=== PATIENT | female | born 1940 | race Caucasian/White ===

== ENCOUNTER 2017-09-08 18:28 | Inpatient (IN) | payer MEDICARE, BC ==
[~2017-09-08] VITALS: Ht 157.5 cm; Wt 86.4 kg
[~2017-09-08 18:28] MED LIST: CYCLOBENZAPRINE10 MG PO; IBUPROFEN600 MG PO; MOBIC7.5 MG PO; NORVASC5 MG PO; PERCOCET 5-3251 TAB PO; PRAVACHOL40 MG PO; ZESTRIL40 MG PO; ZOFRAN ODT4 MG/UDTAB PO
[2017-09-08 20:00] VITALS: BP 153/73
[2017-09-08 21:10] LABS: BASOPHILS 0.1 % (0-2); EOSINOPHILS 0.1 % (0-7); HEMATOCRIT 40.2 % (36.0-48.0); HEMOGLOBIN 13.1 g/dL (12-16); IMMATURE GRANULOCYTES 0.2 % (0-5); LYMPHOCYTES 7.2 % (15-50); MCH 29.9 pg (26.0-34.0); MCHC 32.6 g/dL (31.0-37.0); MCV 91.8 fL (80.0-100.0); MEAN PLATELET VOLUME 9.1 fL (7.4-10.4); MONOCYTES 0.6 % (2-11); NEUTROPHILS 91.8 % (40-80); PLATELET COUNT 187 10x3/uL (130-400); RBC 4.38 10x6/uL (4.00-5.40); WBC 10.8 10x3/uL (4.8-10.8)
[2017-09-08 21:23] LABS: ANION GAP 16.1 mmol/L (8-16); CALCIUM 8.8 mg/dL (8.5-10.1); CARBON DIOXIDE 24.1 mmol/L (21.0-32.0); POTASSIUM - SERUM 4.2 mmol/L (3.5-5.1)
[2017-09-09] VITALS (13 sets, daily range): BP systolic 93–174; BP diastolic 52–89; Ht 157.5 cm; Wt 86.4 kg
[2017-09-09] MEDS ORDERED: OXYBUTYNIN CHLOR5 MG PO (02:40)
[2017-09-09] MEDS ORDERED: KEFLEX250 MG PO (02:41)
[2017-09-09] MEDS ORDERED: PROTONIX40 MG PO (02:42)
[2017-09-09] MEDS ORDERED: MACROBID100 MG PO (02:45)
[2017-09-09] MEDS ORDERED: ZANAFLEX2 M1 PO (02:48)
--- NOTE | 2017-09-09 08:49 | NUR ---
AWAKE AND ALERT. ORIENTED X3. NO C/O AT THIS TIME. LUNGS ARE CLEAR BILATERALLY, NO COUGH NOTED. SKIN IS INTACT WITHOUT REDNESS. IV TO RIGHT AC IS PATENT WITHOUT REDNESS AT INSERTION SITE. FAMILY AT BEDSIDE. DENIES NEEDS. NEURO CHECKS TO LEFT WRIST WNL.
--- NOTE | 2017-09-09 10:11 | NUR ---
RESTING QUIETLY IN BED. DENIES NEEDS. FAMILY AT BEDSIDE.
--- NOTE | 2017-09-09 10:18 | NUR ---
Patient Name: HEATH COX Admission Status: Elective Accout number: [id number] Admission Date: 09-08-2017 : 1941 Admission Diagnosis: Attending: FRENCH GRANT Current LOS: 1 Anticipated DC Date: Planned Disposition: Home Primary Insurance: MEDICARE A & B Discharge Planning Comments: CM met with patient and daughter (Stephany) to assess discharge planning needs. Patient lives independently at home with her , where she plans to return after surgery. She denies any for HH or DME at this time. Patient's daughter is RN at the hospital. CM will continue to follow and assist with discharge planning needs if needed. PCP: [facility] Paula () Stephany or Lottie (daughter) Rodent Exterminator: Bianca Angulo * Is the patient Alert and Oriented? Yes 0 * How many steps to enter\exit or inside your home? 4 0 * PCP [facility] 0 * [facility] * Preadmission Environment Home with Family 0 * ADLs Independent 0 * Equipment None 0 * List name and contact numbers for known caregivers / representatives who currently or will assist patient after discharge: Paula () Stephany (daughter RN ) 0 * Community resources currently utilized None 0 * Additional services required to return to the preadmission environment? No 0 * Can the patient safely return to the preadmission environment? Yes 0 * Has this patient been hospitalized within the prior 30 days at any hospital? No 0 Grand Total: 0
--- NOTE | 2017-09-09 12:40 | NUR ---
OFF UNIT VIA BED FOR SURGERY.
[2017-09-09 13:04] LABS: COLOR YELLOW (YELLOW)
[2017-09-09 13:05] LABS: APPEARANCE SLT CLOUDY (CLEAR); BILIRUBIN NEGATIVE (NEGATIVE); GLUCOSE 50 mg/dL (NEGATIVE); KETONE NEGATIVE (NEGATIVE); NITRITE POSITIVE (NEGATIVE); PROTEIN NEGATIVE (NEGATIVE); SPECIFIC GRAVITY 1.015 (1.005-1.020); UROBILINOGEN NORMAL (NORMAL)
[2017-09-09 13:06] LABS: BACTERIA MANY /hpf (NONE SEEN); EPITHELIAL CELLS OCC /hpf (0-5); MUCUS <1+ /lpf (NONE SEEN); WHITE CELLS - URINE 0-5 /hpf (0-5)
--- NOTE | 2017-09-09 15:29 | NUR ---
RETURNED FROM SURGERY. DRESSING TO LEFT WRIST DRY AND INTACT. NEURO CHECKS WNL.
--- NOTE | 2017-09-09 18:19 | NUR ---
ATE ALMOST ALL OF SUPPER. DENIES NEEDS. NO CHANGES NOTED.
--- NOTE | 2017-09-10 00:31 | NUR ---
2000)REC'D ASSISTED UP TO BR.POSTERIOR SPLINT WITH ACEWRAP DRSG.AND SLING INTACT TO LEFT ARM. FINGERS VISIBLE MINIMAL SWELLING NAILBEDS PINK BLANCHES WELL C/O SOME TINGLING TO FINGER TIPS OCC. ICE UP ON PILLOW WILL CONTINUE TO MONITOR FOR ANY CHGES. IN NEUROVASCULAR STATUS AND FOLLOW CURRENT PLAN OF CARE
[2017-09-10 06:05] LABS: HEMATOCRIT 35.8 % (36.0-48.0); HEMOGLOBIN 11.4 g/dL (12-16)
[2017-09-10 08:04] VITALS: BP 117/57
[2017-09-10] MEDS ORDERED: BACTRIM DS TABL1 TAB PO (08:32)
[2017-09-10] MEDS ORDERED: PERCOCET 10/3251 TA1 PO (08:32)
--- NOTE | 2017-09-10 10:15 | NUR ---
PT DISCHARGED FROM FLOOR WITH FAMILY MEMBER VIA WHEELCHAIR. PERSONAL BELONGINGS WITH PT.
--- NOTE | 2017-09-10 10:18 | NUR ---
PT DISCHARGE INSTRUCTIONS GIVEN TO PT ORDERED, VERBALIZED UNDERSTANDING AND SIGNED.
[2017-10-02] MEDS ORDERED: HYDROCODONE-APA1 TAB PO (10:49)
[2017-10-02] MEDS ORDERED: ZANAFLEX2 M1 PO (10:49)
--- NOTE | 2017-11-10 15:18 | OP ---
PATIENT NAME: HEATH COX MEDICAL RECORD: [id number] :41 LOCATION:D.[id number] ADMISSION DATE:09/08/17 SURGEON: FRENCH GRANT MD DATE OF OPERATION: 09/09/2017 PREOPERATIVE DIAGNOSES: Left distal radius fracture with left both bone wrist fracture. POSTOPERATIVE DIAGNOSES: Left distal radius fracture with left both bone wrist fracture. PROCEDURE: Open reduction internal fixation of left distal radius. SURGEON: French Grant MD ANESTHESIA: General. INTRAOPERATIVE COMPLICATIONS: None. SUMMARY OF PATHOLOGIC FINDINGS: Upon reducing the distal radius, the ulna reduced quite nicely and at this point, I did not think it needed operative fixation. OPERATIVE SUMMARY IN DETAIL: After obtaining the appropriate preoperative orthopedic surgery consent as well as anesthetic consultation, evaluation and clearance, the patient was brought to the operating room and placed on the operating table in supine position. After general laryngeal mask airway was administered, tourniquet was placed about the proximal aspect of the left upper extremity. Left upper extremity was then prepped and draped in routine sterile fashion. The arm was elevated and exsanguinated, tourniquet inflated to 250 mmHg. Curvilinear incision was made from the mid palmar wrist crease up the arm in keeping the volar Jasen approach. The flexor carpal radialis was exposed and used as a landmark as was the transverse carpal ligament. Transverse carpal ligament was incised in its entirety for the formal carpal tunnel release. Dissection was then carried down to the fracture itself while the median nerve and the wrist flexors were gently retracted. Fracture was exposed. Reduction maneuver was performed and then the Parmjit volar wrist plate was put into place. Serial and sequential drill and fill technique was used with a combination of both locking and nonlocking screws. This did result in excellent anatomic reduction of the ulna. Having completed this, final radiographs were submitted by fluoroscopy, which was used during the entire case for direction. These were then submitted for radiologist review. The wound was then copiously irrigated and closed with 2-0 Vicryl followed by 4-0 Prolene in a running fashion. Sterile dressings were applied. A volar splint was applied. Tourniquet was deflated. The patient was awakened and taken to the recovery room in stable condition. All final needle and sponge counts were correct. TRANSINT:[id number] Voice Confirmation ID: [id number] DOCUMENT ID: [id number] OPERATIVE REPORT [id number] HEATH COX MD, FRENCH GRIMALDO at 1518 CC: [id number] DICTATION DATE: 11/10/17 0945 BOILER OPERATOR HELPER: 11/10/17 1302 [facility] [place] 09/10/17 [place] [id number] [place] [id number]
== END 2017-09-10 10:40 | disposition home or self-care (01) | DRG 511 ==
LOC: D.MS 18:28
PROVIDERS: ADMIT Orthopaedic Surgery
PROC: 0PSJ04Z Reposition Left Radius with Internal Fixation Device, Open Approach (ICD-10-PCS; principal; 2017-09-08)
DX: S52.502A Unspecified fracture of the lower end of left radius, initial encounter for closed fracture (principal); N39.0 Urinary tract infection, site not specified; S52.202A Unspecified fracture of shaft of left ulna, initial encounter for closed fracture; X58.XXXA Exposure to other specified factors, initial encounter; I10 Essential (primary) hypertension

== ENCOUNTER 2017-10-03 09:33 | Day surgery (SDC) | payer MEDICARE, BC ==
[~2017-10-03] VITALS: Ht 157.5 cm; Wt 85.3 kg
[~2017-10-03 09:33] MED LIST changes: +BACTRIM DS TABL1 TAB PO; +HYDROCODONE-APA1 TAB PO; +KEFLEX250 MG PO; +MACROBID100 MG PO; +OXYBUTYNIN CHLOR5 MG PO; +PERCOCET 10/3251 TA1 PO; +PROTONIX40 MG PO; +ZANAFLEX2 M1 PO
[2017-10-03 11:12] LABS: BASOPHILS 0.3 % (0-2); EOSINOPHILS 5.4 % (0-7); HEMOGLOBIN 14.2 g/dL (12-16); IMMATURE GRANULOCYTES 0.1 % (0-5); LYMPHOCYTES 24.3 % (15-50); MCV 90.7 fL (80.0-100.0); MONOCYTES 7.2 % (2-11); NEUTROPHILS 62.7 % (40-80); PLATELET COUNT 230 10x3/uL (130-400); RBC 4.74 10x6/uL (4.00-5.40); RDW 12.7 % (11.5-14.5); WBC 7.6 10x3/uL (4.8-10.8)
[2017-10-03 11:54] LABS: CALC OSMOLALITY 281 mosm/kg (275-300); CALCIUM 9.8 mg/dL (8.5-10.1); CARBON DIOXIDE 23.1 mmol/L (21.0-32.0); CHLORIDE - SERUM 105 mmol/L (98-107); CREATININE - SERUM 0.7 mg/dL (0.6-1.3); SODIUM 141 mmol/L (136-145); UREA NITROGEN 14 mg/dL (7-18); eGFR NON AFRICAN AMERICAN 86 mL/min (90-120)
[2017-10-03 12:02] LABS: GLUCOSE 101 mg/dL (74-106)
[2017-10-03 13:19] VITALS: Ht 157.5 cm; Wt 85.3 kg
[2017-10-03] MEDS ORDERED: HYDROCODONE-APA1 TAB PO (15:19)
--- NOTE | 2017-10-03 15:43 | NUR ---
RECIEVED PT FROM OR WITH DRESSING TO LEFT WRIST/FOREARM, PT STABLE.
--- NOTE | 2017-10-03 16:11 | NUR ---
1600 BACK FROM LT ULNA SURGERY. DROWSY ARM ELEVATED AND ICED GOOD CAPILLARY REFILL TO NAIL BEDS ARM IN SLING WAS BLOCKED. FAMILY PRESENT.
--- NOTE | 2017-10-03 19:45 | NUR ---
1710 IV DCD CATHETER INTACT. WENT OVER DISCHARGE INSTRUCTIONS GAVE APPOINTMENT SCRIPT FOLLOW UP APPOINTMRNT AND BLOCK INFORMATION. INSTRUCTED TO NOT GET IT WET KEEP ELEVATED AND ICED. VERBALLY UNDERSTANDS.
--- NOTE | 2017-10-03 19:46 | NUR ---
1750 TO HOME VIA W/C WITH DAUGHTER.
--- NOTE | 2017-10-03 19:47 | NUR ---
1720 TO HOME WITH DAUGHTER VIA W/C.
--- NOTE | 2017-10-09 09:04 | OP ---
PATIENT NAME: HEATH COX MEDICAL RECORD: [id number] :41 LOCATION:D.OPS ADMISSION DATE: SURGEON: FRENCH GRANT MD DATE OF OPERATION: 10/03/2017 PREOPERATIVE DIAGNOSIS: Displaced ulnar fracture of the left wrist. POSTOPERATIVE DIAGNOSIS: Displaced ulnar fracture of the left wrist. PROCEDURE: Open reduction internal fixation of left distal ulnar fracture. SURGEON: French Grant MD ANESTHESIA: General. INTRAOPERATIVE COMPLICATIONS: None. SUMMARY OF PATHOLOGIC FINDINGS: The patient had a mildly fragmented distal ulnar fracture. This was fixed with a small modular handset. OPERATIVE SUMMARY IN DETAIL: After obtaining the appropriate preoperative orthopedic surgery consent as well as anesthetic consultation, evaluation and clearance, the patient was brought to the operating room and placed on the operating table in supine position. After general laryngeal mask was administered, tourniquet was placed on the proximal aspect of the left upper extremity. Left upper extremity was then prepped and draped in routine sterile fashion. The arm was elevated and exsanguinated, tourniquet inflated to 250 mmHg. An incision was made directly over the ulnar styloid, taken down directly to the subperiosteal plane. Dissection was carried out. The bone fracture was revealed. It was put into an anatomic reposition and pinned in place with provisional 0.062 K-wire. A small T-plate from the modular handset was then utilized, a combination of both locking and compression screws were utilized to fix the distal ulnar fracture. This was all done under fluoroscopic guidance. Final radiographs were taken in AP and lateral planes and submitted for radiologist's review. The wound was then irrigated and closed in usual fashion. Sterile dressings were applied. The patient was awakened and taken to recovery in stable condition. All final needle and sponge counts were correct. TRANSINT:[id number] Voice Confirmation ID: [id number] DOCUMENT ID: [id number] FRENCH GRANT MD at 0904 CC: [id number] DICTATION DATE: 10/03/17 184 PIECE PRESSER: 10/03/17 2217 [facility] 10/03/17 [place] [address]
== END 2017-10-03 17:20 | disposition home or self-care (01) ==
LOC: D.OPS 09:33 → D.PAN 11:15 → D.OPS 11:15
PROVIDERS: Anesthesiology
DX: S52.602A Unspecified fracture of lower end of left ulna, initial encounter for closed fracture (principal); I10 Essential (primary) hypertension; K21.9 Gastro-esophageal reflux disease without esophagitis; Z01.812 Encounter for preprocedural laboratory examination

== ENCOUNTER → 2017-12-10 14:49 | Outpatient (CLI) | payer MEDICARE, BC ==
[2017-12-10 15:23] LABS: BASOPHILS 0.3 % (0-2); EOSINOPHILS 3.1 % (0-7); HEMATOCRIT 41.7 % (36.0-48.0); HEMOGLOBIN 13.9 g/dL (12-16); IMMATURE GRANULOCYTES 0.3 % (0-5); LYMPHOCYTES 32.7 % (15-50); MCH 29.4 pg (26.0-34.0); MCHC 33.3 g/dL (31.0-37.0); MCV 88.3 fL (80.0-100.0); MEAN PLATELET VOLUME 8.9 fL (7.4-10.4); MONOCYTES 5.7 % (2-11); NEUTROPHILS 57.9 % (40-80); PLATELET COUNT 208 10x3/uL (130-400); RBC 4.72 10x6/uL (4.00-5.40); RDW 12.8 % (11.5-14.5); WBC 6.2 10x3/uL (4.8-10.8)
[2017-12-10 16:52] LABS: ERYTHROCYTE SEDIMENTATION RATE 10 mm/hr (0-30)
== END | disposition home or self-care (01) ==
LOC: D.LAB 14:49
PROVIDERS: Orthopaedic Surgery
DX: M25.532 Pain in left wrist (principal); R22.32 Localized swelling, mass and lump, left upper limb